=== PATIENT | female | born 1955 | race Caucasian/White ===

== ENCOUNTER 2022-02-10 18:51 | Inpatient (IN) ==
[2022-02-10] MEDS ORDERED: Melatonin 3 MG TABLET PO PRN (23:14)
[2022-02-10] MEDS ORDERED: Ondansetron ODT 4 MG TAB.RAPDIS SL PRN (23:14)
[2022-02-10] MEDS ORDERED: Naloxone 0.4 MG/ML INJ IVP PRN (23:14)
[2022-02-10] MEDS ORDERED: D5% in Water 1,000 ML IVC PRN (23:48)
[2022-02-10] MEDS ORDERED: *HR* Dextrose 50 % in Water (Syg) 50 ML SYRINGE IVP PRN (23:48)
[2022-02-10] MEDS ORDERED: Dextrose 4 GM Chewable Tablets PO PRN ×2 (23:48)
[2022-02-10] MEDS: 0.9 % Sodium Chloride 1,000 ML IVC SCH (23:50)
[2022-02-11] MEDS: Insulin LISPRO 300 UNITS/3 ML VIAL SUBQ SCH ×4 (01:35→16:55)
[2022-02-11 03:52] LABS: Adenovirus Not Detected (Not Detect); Bordetella Pertussis Not Detected (Not Detect); Chlamydophila pneumoniae Not Detected (Not Detect); Coronavirus 229E Not Detected (Not Detect); Coronavirus HKU1 Not Detected (Not Detect); Coronavirus NL63 Not Detected (Not Detect); Coronavirus OC43 Not Detected (Not Detect); Human Metapneumovirus Not Detected (Not Detect); Human Rhinovirus/Enterovirus Not Detected (Not Detect); Influenza A Subtype 2009 H1 Not Detected (Not Detect); Influenza B Not Detected (Not Detect); Mycoplasma pneumoniae Not Detected (Not Detect); Parainfluenza Virus 1 Not Detected (Not Detect); Parainfluenza Virus 2 Not Detected (Not Detect); Parainfluenza Virus 3 Not Detected (Not Detect); Parainfluenza Virus 4 Not Detected (Not Detect); Respiratory Syncytial Virus Not Detected (Not Detect); SARS-CoV-2 Not Detected (Not Detect)
[2022-02-11 06:21] LABS: INR 1.1; Prothrombin Time 12.3 Seconds (9.4-12.1)
[2022-02-11 06:24] LABS: Activated Partial Thrombo Time 29.4 Seconds (26.0-36.0)
[2022-02-11 06:39] LABS: Hematocrit 34.5 % (35.3-44.9); Hemoglobin 11.1 g/dL (11.5-15.4); Mean Corpuscular HGB Conc 32.2 g/dL (31.6-35.5); Mean Corpuscular Hemoglobin 29.2 pg (28.0-33.3); Mean Corpuscular Volume 90.8 fL (83.0-100.0); Mean Platelet Volume 9.7 fL (9.4-12.4); Platelet Count 240 K/mcL (140-400); Red Cell Distribution Width 16.1 % (11.5-14.5); White Blood Count 7.3 K/mcL (4.3-11.1)
[2022-02-11 06:48] LABS: BUN/Creatinine Ratio 17 (6-26); Blood Urea Nitrogen 17 mg/dL (8-23); Calcium 9.2 mg/dL (8.6-10.3); Carbon Dioxide 25 mEq/L (23-29); Chloride 102 mEq/L (98-107); Chol/HDL Ratio 2.3 (0-4.9); Cholesterol 112 mg/dL (< 200); Glucose 204 mg/dL (70-105); HDL Cholesterol 48 mg/dL (40-59); LDL Cholesterol,Calculated 47 mg/dL (< 100); Magnesium 1.6 mg/dL (1.6-2.6); Osmolality,Calculated 287 (280-300); Phosphorous 3.7 mg/dL (2.7-4.5); Potassium 4.5 mEq/L (3.5-5.1); Sodium 135 mEq/L (136-145); Triglycerides 84 mg/dL (< 150); eGFR For African Americans > 60 (> 60); eGFR For Non-African Americans 57 (> 60)
[2022-02-11] MEDS ORDERED: TRELEGY ELLIPTA IH SCH (15:30)
[2022-02-11] MEDS: Gabapentin 300 MG CAPSULE PO SCH ×2 (16:50→19:35)
[2022-02-11] MEDS: BuPROPion SR (12 HR) 150 MG TABLET PO SCH (16:52)
[2022-02-11] MEDS ORDERED: Budesonide/Formoterol 160/4.5 1 PUFF INH IH ONE (20:01)
[2022-02-11] MEDS: Budesonide/Formoterol 160/4.5 1 PUFF INH IH SCH (20:03)
[2022-02-11] MEDS ORDERED: Insulin LISPRO 300 UNITS/3 ML VIAL SUBQ SCH (21:00)
[2022-02-11] MEDS: 0.9 % Sodium Chloride 1,000 ML IVC SCH (22:59)
[2022-02-12] MEDS: Budesonide/Formoterol 160/4.5 1 PUFF INH IH SCH ×2 (07:44→20:09)
[2022-02-12] MEDS: Gabapentin 300 MG CAPSULE PO SCH ×3 (08:28→20:58)
[2022-02-12] MEDS: BuPROPion SR (12 HR) 150 MG TABLET PO SCH (08:28)
[2022-02-12] MEDS: Insulin LISPRO 300 UNITS/3 ML VIAL SUBQ SCH ×3 (08:29→21:07)
[2022-02-12] MEDS ORDERED: Magnesium Oxide 400 MG TABLET PO SCH (09:00)
[2022-02-12] MEDS ORDERED: Furosemide 40 MG TABLET PO SCH (09:00)
[2022-02-12] MEDS ORDERED: Tiotropium 10 INH DOSE IH SCH (10:00)
[2022-02-12] MEDS ORDERED: CeFAZolin Syr 2,000MG/20 ML 2,000 MG/20 ML SYRINGE IVPB ONE (10:04)
[2022-02-12] MEDS ORDERED: *HR* Midazolam HCl 2 MG/2 ML VIAL ONE (10:12)
[2022-02-12] MEDS ORDERED: *HR* FentaNYL (PF) 100 MCG/2 ML VIAL ONE ×3 (10:12→13:15)
[2022-02-12] MEDS ORDERED: Ondansetron 4 MG/2 ML VIAL IVP PRN ×2 (10:13→15:56)
[2022-02-12] MEDS ORDERED: *HR* FentaNYL (PF) 100 MCG/2 ML VIAL IVP PRN (10:13)
[2022-02-12] MEDS ORDERED: *HR* HYDROmorphone PF 0.5 MG/0.5 ML SYRINGE IVP PRN (10:13)
[2022-02-12] MEDS ORDERED: Ondansetron 4 MG/2 ML VIAL ONE (10:14)
[2022-02-12] MEDS ORDERED: Lidocaine -MPF 2% 5 ML VIAL ONE (10:14)
[2022-02-12] MEDS ORDERED: Ringers Solution, Lactated 1,000 ML IVC SCH (10:15)
[2022-02-12] MEDS ORDERED: Ketamine HCL *QUVA* 50mg (1mL) SYRINGE ONE (10:17)
[2022-02-12] MEDS ORDERED: ROPIVACAINE/PF/NS 0.25% 1 EACH SYRINGE INTRAART ONE (10:35)
[2022-02-12] MEDS ORDERED: Tranexamic Acid 1,000 MG/10 ML VIAL ONE ×2 (10:40→13:18)
[2022-02-12] MEDS ORDERED: Povidone-Iodine 45 ML, Sodium Chloride IRRigation 1,000 ML IR ONE (11:00)
[2022-02-12] MEDS ORDERED: *HR* Propofol 200 MG/20 ML VIAL IVP ONE ×4 (12:38→13:17)
[2022-02-12] MEDS ORDERED: Insulin Human Regular 3 UNIT in 0.9 % Sodium Chloride 10 ML IV ONE (14:04)
[2022-02-12] MEDS ORDERED: Ondansetron ODT 4 MG TAB.RAPDIS SL PRN (15:56)
[2022-02-12] MEDS ORDERED: D5% in Water 1,000 ML IVC PRN (15:56)
[2022-02-12] MEDS ORDERED: *HR* Dextrose 50 % in Water (Syg) 50 ML SYRINGE IVP PRN (15:56)
[2022-02-12] MEDS ORDERED: Melatonin 3 MG TABLET PO PRN (15:56)
[2022-02-12] MEDS ORDERED: Dextrose 4 GM Chewable Tablets PO PRN ×2 (15:56)
[2022-02-12] MEDS ORDERED: Ketorolac 30 MG/ML VIAL IVP PRN (15:56)
[2022-02-12] MEDS ORDERED: Naloxone 0.4 MG/ML INJ IVP PRN (15:56)
[2022-02-12] MEDS: CeFAZolin 2 GM/120 ML BAG IVPB SCH (20:11)
[2022-02-13 04:38] LABS: Hematocrit 30.4 % (35.3-44.9); Hemoglobin 10.5 g/dL (11.5-15.4)
[2022-02-13] MEDS: CeFAZolin 2 GM/120 ML BAG IVPB SCH (05:32)
[2022-02-13] MEDS: Insulin LISPRO 300 UNITS/3 ML VIAL SUBQ SCH ×4 (07:48→20:50)
[2022-02-13] MEDS: Furosemide 40 MG TABLET PO SCH (09:20)
[2022-02-13] MEDS: BuPROPion SR (12 HR) 150 MG TABLET PO SCH (09:20)
[2022-02-13] MEDS: Cholecalciferol (D-3) 1,000 UNIT (25MCG) TABLET PO SCH (09:20)
[2022-02-13] MEDS: Magnesium Oxide 400 MG TABLET PO SCH (09:21)
[2022-02-13] MEDS: Gabapentin 300 MG CAPSULE PO SCH ×4 (09:23→20:51)
[2022-02-13] MEDS: Tiotropium 10 INH DOSE IH SCH (11:22)
[2022-02-13] MEDS: Budesonide/Formoterol 160/4.5 1 PUFF INH IH SCH ×2 (11:22→21:45)
[2022-02-13] MEDS: *HR* Enoxaparin 30 MG/0.3 ML SYRINGE SQ SCH (14:31)
[2022-02-13] MEDS ORDERED: Insulin Human Regular 5 UNIT in 0.9 % Sodium Chloride 10 ML IV ONE (19:15)
[2022-02-13] MEDS ORDERED: Insulin DETEMIR 100 UNIT/ML X5UNITS SUBQ SCH (21:00)
[2022-02-14] MEDS: *HR* Enoxaparin 30 MG/0.3 ML SYRINGE SQ SCH ×2 (05:28→18:07)
[2022-02-14] MEDS: Tiotropium 10 INH DOSE IH SCH (07:42)
[2022-02-14] MEDS: Budesonide/Formoterol 160/4.5 1 PUFF INH IH SCH (07:43)
[2022-02-14] MEDS: Magnesium Oxide 400 MG TABLET PO SCH (10:04)
[2022-02-14] MEDS: BuPROPion SR (12 HR) 150 MG TABLET PO SCH (10:04)
[2022-02-14] MEDS: Furosemide 40 MG TABLET PO SCH (10:05)
[2022-02-14] MEDS: Gabapentin 300 MG CAPSULE PO SCH ×3 (10:05→18:07)
[2022-02-14] MEDS: Cholecalciferol (D-3) 1,000 UNIT (25MCG) TABLET PO SCH (10:05)
[2022-02-14] MEDS: Insulin LISPRO 300 UNITS/3 ML VIAL SUBQ SCH ×3 (10:06→18:07)
[2022-02-14 10:28] VITALS: BP 132/59; PULSE 80; TEMP 98.3; O2SAT 96
[2022-02-14 14:01] LABS: Adenovirus Not Detected (Not Detect); Bordetella Pertussis Not Detected (Not Detect); Chlamydophila pneumoniae Not Detected (Not Detect); Coronavirus 229E Not Detected (Not Detect); Coronavirus HKU1 Not Detected (Not Detect); Coronavirus NL63 Not Detected (Not Detect); Coronavirus OC43 Not Detected (Not Detect); Human Metapneumovirus Not Detected (Not Detect); Human Rhinovirus/Enterovirus Not Detected (Not Detect); Influenza A Subtype 2009 H1 Not Detected (Not Detect); Influenza B Not Detected (Not Detect); Mycoplasma pneumoniae Not Detected (Not Detect); Parainfluenza Virus 1 Not Detected (Not Detect); Parainfluenza Virus 2 Not Detected (Not Detect); Parainfluenza Virus 3 Not Detected (Not Detect); Parainfluenza Virus 4 Not Detected (Not Detect); Respiratory Syncytial Virus Not Detected (Not Detect); SARS-CoV-2 Not Detected (Not Detect)
== END 2022-02-14 19:28 | DRG 323 ==
LOC: 4WAOSI → SUATTDRO 22:33
PROVIDERS: ADMIT Internal Medicine; ATTEND Hospitalist